=== PATIENT | male | born 1995 | race Asian ===

== ENCOUNTER 2018-08-03 23:37 | Emergency (ER) | payer SELFPAY ==
[~2018-08-03] VITALS: Ht 177.8 cm; Wt 84.1 kg
[2018-08-03 23:50] VITALS: BP 124/67
[2018-08-04 01:12] LABS: EOS % 0.5 % (0.0-4.0); LYMPH# 2.4 (1.50-4.00); MEAN CELL VOLUME 84 fl (78-95); MEAN CORPUSCULAR HEMOGLOBIN 28 pg (26-32); MEAN CORPUSCULAR HGB CONC 33 g/dL (33-37); MEAN PLATELET VOLUME 8.6 fl (7.4-10.4); MONO # 0.8 (0.20-0.80); NEU # 5.6 (1.40-6.50); PLATELET COUNT 385 K/mm3 (130-400); RED BLOOD COUNT 5.01 M/mm3 (4.20-5.60); WHITE BLOOD COUNT 8.8 K/mm3 (4.8-10.8)
[2018-08-04 01:22] LABS: ALBUMIN 4.8 g/dL (3.5-5.0); CALCIUM 9.9 mg/dL (8.4-10.2); POTASSIUM 3.9 mmol/L (3.6-5.0); TOTAL BILIRUBIN 0.5 mg/dL (0.2-1.3)
[2018-08-04] MEDS ORDERED: GOOD NEIGHBOR P20 M1 PO (01:41)
== END 2018-08-04 02:00 | disposition home or self-care (01) ==
LOC: ED 23:37
PROVIDERS: Family Medicine
DX: K21.0 Gastro-esophageal reflux disease with esophagitis (principal)